=== PATIENT | female | born 1950 | race African-American/Black ===

== ENCOUNTER 2020-05-02 22:50 | Emergency (ER) | payer BC, MEDICARE ==
[~2020-05-02] VITALS: Ht 165.1 cm; Wt 71.0 kg
[2020-05-03] MEDS ORDERED: ACETAMINOPHEN 500MG TABLET PO ONE (00:15)
[2020-05-03] MEDS ORDERED: IBUPROFEN 600MG TABLET PO ONE (00:15)
[2020-05-03] MEDS ORDERED: ASPIRIN 81MG TABLET PO ONE (00:30)
[2020-05-03 01:15] LABS: BASOPHILS % 0.9 % (0.0-2.0); EOSINOPHILS % 2.5 % (0.0-5.0); HEMATOCRIT. 36.7 % (36.0-48.0); HEMOGLOBIN. 12.1 g/dL (12.0-16.0); LYMPHOCYTES % 30.6 % (20.0-50.0); MEAN CORPUSCULAR HEMOGLOBIN 28.7 pg (28.0-32.0); MEAN CORPUSCULAR VOLUME 86.8 fL (81.0-99.0); MEAN PLATELET VOLUME 8.2 fl (7.4-10.4); MONOCYTES % 13.5 % (2.0-8.0); NEUTROPHILS % 52.5 % (40.0-76.0); PLATELET 201 x1000/uL (130-400); RED BLOOD CELL COUNT 4.23 mill/uL (4.2-5.4)
[2020-05-03 01:19] LABS: CHLORIDE 110 mEq/L (98-107)
[2020-05-03 01:57] VITALS: BP 138/74
== END 2020-05-03 02:18 | disposition home or self-care (01) ==
LOC: ER 22:50
DX: M25.512 Pain in left shoulder (principal); I10 Essential (primary) hypertension
CPT/HCPCS: 36415; 71045; 73030; 80053; 83880; 84484; 85025; 93005; 99285